=== PATIENT | male | born 1950 | race Caucasian/White ===

== ENCOUNTER 2020-01-19 13:03 | Outpatient (RCR) | payer BC | END 2020-01-20 | LOC: PT 13:03 | PROVIDERS: ATTEND Neurological Surgery | DX: M51.16 Intervertebral disc disorders with radiculopathy, lumbar region (principal) ==

== ENCOUNTER 2020-02-02 08:45 | Outpatient (RCR) | payer BC | END 2020-02-20 | LOC: PT 08:45 | PROVIDERS: ATTEND Neurological Surgery | DX: M51.16 Intervertebral disc disorders with radiculopathy, lumbar region (principal) ==

== ENCOUNTER 2020-08-02 06:46 | Observation (INO) | payer BC, MEDICARE ==
[2020-07-28 12:25] LABS: BASOPHILS % 0.4 % (0.0-1.0); EOSINOPHILS # (AUTO) 0.1 (0.0-0.4); EOSINOPHILS % 1.8 % (0.0-6.0); HEMOGLOBIN 14.9 g/dL (14.0-18.0); LYMPHOCYTES # (AUTO) 1.8 (1.0-3.2); LYMPHOCYTES % 32.1 % (18.0-39.1); MEAN CORPUSCULAR HEMOGLOBIN 31.7 pg (28-32); MEAN CORPUSCULAR HGB CONC 33.9 g/dL (31-35); MEAN CORPUSCULAR VOLUME 93.6 fL (81-99); MONOCYTES # (AUTO) 0.5 (0.2-0.8); MONOCYTES % 9.9 % (4.4-11.3); NEUTROPHILS % 55.4 % (38.7-80.0); PLATELET COUNT 173 x10e3/uL (140-360); RED CELL DISTRIBUTION WIDTH 12.8 % (11.7-14.4)
[~2020-08-02] VITALS: Ht 188 cm; Wt 98.9 kg
[~2020-08-02 06:46] MED LIST: ARIMIDEX1 MG PO; BYSTOLIC10 MG PO; CELEBREX200 MG PO; CYMBALTA20 MG PO; DUEXIS 800-26.1 EACH; ERGOCALCIFEROL1 GM; FINASTERIDE5 MG PO; LIPITOR20 MG PO; LISINOPRIL-HCT1 EACH; MOBIC15 MG PO; MYRBETRIQ50 MG; NEURONTIN300 MG PO; TERAZOSIN HCL1 MG PO; ULTRAM50 MG PO; VIAGRA100 MG; VICODIN HP 10-1 EAC1 PO
[2020-08-02] MEDS ORDERED: CELECOXIB 200 MG CAP ONE (07:21)
[2020-08-02] MEDS ORDERED: CEFAZOLIN SOD 1 GM/NS 50ML 100 ML IV ONE (07:22)
[2020-08-02] MEDS ORDERED: GABAPENTIN 300 MG CAP ONE (07:22)
[2020-08-02] MEDS ORDERED: SODIUM CHLORIDE 0.9% 500ML 500 ML ONE (07:22)
[2020-08-02] MEDS ORDERED: DEXAMETHASONE SOD PHOS 10 MG/1 ML VIAL ONE (07:22)
[2020-08-02] MEDS ORDERED: ROPIVACAINE 246.25 MG, EPINEPHRINE HCL 1:1000 1ML 0.5 MG, CLONIDINE HCL 0.08 MG, KETORO... INJ ONE ×5 (08:00)
[2020-08-02] MEDS ORDERED: BUPIVACAINE 7.5MG/ML /DEXTROSE 82.5MG/ML 2 ML AMP INJ ONE ×2 (10:10→10:24)
[2020-08-02] MEDS ORDERED: KETOROLAC TROMETHAMINE 30 MG/ML VIAL IV PRN (12:15)
[2020-08-02] MEDS ORDERED: HYDROCODONE/APAP 5MG-325MG TAB PO PRN (12:15)
[2020-08-02] MEDS ORDERED: SODIUM CHLORIDE 0.9% 1000ML 1,000 ML IV SCH (12:15)
[2020-08-02] MEDS ORDERED: DOCUSATE SODIUM 100 MG CAP PO PRN (12:15)
[2020-08-02] MEDS ORDERED: DIPHENHYDRAMINE HCL INJ 50 MG/ML VIAL IV PRN (12:15)
[2020-08-02] MEDS ORDERED: ACETAMINOPHEN 650 MG SUPP PR PRN (12:15)
[2020-08-02] MEDS ORDERED: ONDANSETRON HCL INJ 2MG/ML 2ML 2 MG/ML VIAL IV PRN (12:15)
[2020-08-02 12:47] VITALS: BP 101/64
[2020-08-02] MEDS ORDERED: FENTANYL CITRATE/PF 100MCG/2 ML INJ ONE (13:05)
[2020-08-02] MEDS ORDERED: KETAMINE HCL INJ 50 MG/ML 10 ML VIAL ONE (13:05)
[2020-08-02] MEDS ORDERED: MIDAZOLAM HCL 2 MG/2 ML VIAL ONE (13:05)
[2020-08-02 13:26] VITALS: BP 101/64
[2020-08-02 13:39] VITALS: BP 101/64
[2020-08-02 13:53] VITALS: BP 101/64
[2020-08-02] MEDS ORDERED: SODIUM CHLORIDE 0.9% 250ML 250 ML ONE (14:14)
[2020-08-02] MEDS: CEFAZOLIN SOD 1 GM/NS 50ML 50 ML IV SCH ×2 (14:22→22:59)
[2020-08-02 16:00] VITALS: BP 121/76
[2020-08-02] MEDS: ASPIRIN 325 MG TAB PO SCH (16:19)
[2020-08-02] MEDS: CELECOXIB 200 MG CAP PO SCH (16:19)
[2020-08-02 20:00] VITALS: BP 128/77
[2020-08-02] MEDS ORDERED: ZOLPIDEM TARTRATE 5 MG TAB PO PRN (21:00)
[2020-08-02] MEDS: HYDROCODONE/APAP 7.5MG-325MG 1 EA TAB PO PRN (23:19)
[2020-08-03] VITALS: BP 120/73
[2020-08-03 04:00] VITALS: BP 123/89
[2020-08-03] MEDS: HYDROCODONE/APAP 7.5MG-325MG 1 EA TAB PO PRN ×2 (04:36→08:25)
[2020-08-03 05:28] LABS: HEMATOCRIT 38.1 % (38.2-49.6); HEMOGLOBIN 13.4 g/dL (14.0-18.0)
[2020-08-03] MEDS: CEFAZOLIN SOD 1 GM/NS 50ML 50 ML IV SCH (06:13)
[2020-08-03 08:02] VITALS: BP 122/70
[2020-08-03 08:30] VITALS: BP 122/70
[2020-08-03] MEDS: CELECOXIB 200 MG CAP PO SCH (09:00)
[2020-08-03] MEDS: ASPIRIN 325 MG TAB PO SCH (09:00)
[2020-08-03] MEDS ORDERED: ONDANSETRON HCL 4 MG ORAL DISINTEGRATING TAB PO PRN (10:30)
[2020-08-03 11:43] VITALS: BP 113/71
[2020-08-03] MEDS ORDERED: ACETAMINOPHEN 1000 MG/100 ML IV PRN (12:15)
== END 2020-08-03 12:38 | disposition home or self-care (01) ==
LOC: OR 06:46 → PACU V 12:26 → MED/SURG 12:47
PROVIDERS: ADMIT Specialist; ATTEND Specialist
DX: M16.12 Unilateral primary osteoarthritis, left hip (principal); I10 Essential (primary) hypertension; Z01.810 Encounter for preprocedural cardiovascular examination; Z01.812 Encounter for preprocedural laboratory examination; Z01.818 Encounter for other preprocedural examination; Z20.822 Contact with and (suspected) exposure to COVID-19
CPT/HCPCS: 27130; 36415 ×2; 71046; 72170; 85014; 85018; 85025; 86850; 86900; 86920; 93005; 97116; 97162; 97530 ×2; 99251; G0378 ×2; J0171; J0690 ×2; J1100; J1885 ×2; J2250; J2795; J3010; J7040; J7050; U0002